=== PATIENT | female | born 1995 | race American Indian/Alaskan Native ===

== ENCOUNTER 2020-08-03 15:40 | Emergency (ER) | payer SELFPAY ==
[2020-08-03 16:35] VITALS: BP 142/80
--- NOTE | 2020-08-03 16:35 | Event Note ---
ED Screening Note Date of service: 08/03/20 Time: 16:34 ED Screening Note: Patient complains of urinary frequency and dysuria x1 week Also states elevated blood pressure-reports history of hypertension not currently on medication This initial assessment/diagnostic orders/clinical plan/treatment(s) is/are subject to change based on patients health status, clinical progression and re- assessment by fellow clinical providers in the ED. Further treatment and workup at subsequent clinical providers discretion. Patient/guardian urged not to elope from the ED as their condition may be serious if not clinically assessed and managed. Initial orders include:
[2020-08-03 17:12] LABS: Bacteria,Urine 2+ /HPF (Negative); Bilirubin,Urine NEG (Negative); Blood,Urine NEG (Negative); Color,Urine Yellow (Yellow); Mucus,Urine FEW /HPF; Protein,Urine <15 mg/dL mg/dL (Negative); Urobilinogen,Urine < 2.0 mg/dL (<2.0)
[2020-08-03 17:30] LABS: HCG Qualitative,Urine Negative (Negative)
== END 2020-08-03 19:51 | disposition left against medical advice (07) ==
LOC: ED 15:40
DX: I10 Essential (primary) hypertension (principal); Z53.21 Procedure and treatment not carried out due to patient leaving prior to being seen by health care provider
CPT/HCPCS: 81001; 81025; 87076; 87086; 87186